=== PATIENT | female | born 1940 ===

== ENCOUNTER 2020-04-20 09:55 | Inpatient (IN) ==
[2020-04-20 10:43] LABS: Basophils % 0.1 % (0.0-0.8); Eosinophils % 0.4 % (0.00-10.9); Hematocrit 37.1 VOL% (35.7-47.0); Hemoglobin 13.4 GM/DL (12.0-16.0); Immature Granulocytes % 0.4 %; Immature Granulocytes Absolute 0.04 #; Lymphocytes # 1.4 10*3/uL (1.4-4.0); Mean Corpuscular HGB Conc 36.1 GM/DL (32-36); Mean Platelet Volume 9.4 FL (9.6-12.0); Monocytes % 5.2 % (1.7-12.7); Neutrophils % 79.9 % (38.7-73.9); Platelet Count 245 T/CUMM (130-400); Red Blood Count 4.17 MC/CUMM (3.8-5.5); Red Cell Distribution Width 11.8 % (9.3-17.3)
[2020-04-20 11:03] LABS: Calcium 9.3 MG/DL (8.5-10.1); Osmolality,Calculated 295.1 MOS/KG (273-304)
[2020-04-20] MEDS ORDERED: SODIUM CHLORIDE 0.9% 500 ML IV STA ×2 (12:26→13:28)
[2020-04-20] MEDS ORDERED: hydrALAZINE 20 MG/1 ML VIAL ONE (13:23)
[2020-04-20] MEDS ORDERED: hydrALAZINE 20 MG/1 ML VIAL IV STA (13:28)
[2020-04-20] MEDS ORDERED: GLUCAGON 1 MG VIAL IM PRN (13:29)
[2020-04-20] MEDS ORDERED: DEXTROSE 50% 25 GM/50 ML VIAL IV PRN (13:29)
[2020-04-20] MEDS ORDERED: ACETAMINOPHEN 325 MG TABLET PO PRN (13:29)
[2020-04-20] MEDS: ONDANSETRON 4 MG/2 ML VIAL IV PRN ×2 (14:08→21:15)
[2020-04-20] MEDS: SODIUM CHLORIDE 0.9% 1,000 ML IV SCH (15:15)
[2020-04-20 15:33] LABS: Risk Ratio 5.16; Thyroid Stimulating Hormone 1.11 uIU/ml (0.358-3.74); VLDL CHOLESTEROL 38.8 MG/DL
[2020-04-20] MEDS: INSULIN LISPRO 100 UNIT/ML SUBCUT SCH ×2 (18:28→21:11)
[2020-04-20] MEDS: METOCLOPRAMIDE 5 MG TABLET PO SCH ×2 (18:30→21:11)
[2020-04-20] MEDS: ENOXAPARIN 30 MG/0.3 ML SYRINGE SUBCUT SCH (21:11)
[2020-04-21] MEDS: SODIUM CHLORIDE 0.9% 1,000 ML IV SCH ×2 (00:24→07:13)
[2020-04-21] MEDS: hydrALAZINE 20 MG/1 ML VIAL IV PRN ×2 (02:37→21:32)
[2020-04-21 05:17] LABS: Basophils % 0.2 % (0.0-0.8); Eosinophils % 0.3 % (0.00-10.9); Hematocrit 35.6 VOL% (35.7-47.0); Hemoglobin 12.5 GM/DL (12.0-16.0); Immature Granulocytes % 0.5 %; Immature Granulocytes Absolute 0.06 #; Lymphocytes # 3.7 10*3/uL (1.4-4.0); Lymphocytes % 27.7 % (21.3-54.2); Mean Corpuscular HGB Conc 35.1 GM/DL (32-36); Mean Corpuscular Volume 91.5 FL (87-102); Mean Platelet Volume 10.2 FL (9.6-12.0); Monocytes % 6.2 % (1.7-12.7); Neutrophils % 65.1 % (38.7-73.9); Platelet Count 291 T/CUMM (130-400); Red Blood Count 3.89 MC/CUMM (3.8-5.5); Red Cell Distribution Width 11.9 % (9.3-17.3); White Blood Count 13.2 T/CUMM (4-12)
[2020-04-21 05:52] LABS: Calcium 8.7 MG/DL (8.5-10.1); Osmolality,Calculated 301.3 MOS/KG (273-304)
[2020-04-21] MEDS: METOCLOPRAMIDE 5 MG TABLET PO SCH ×4 (07:12→21:31)
[2020-04-21] MEDS: ONDANSETRON 4 MG/2 ML VIAL IV PRN ×3 (07:19→16:14)
[2020-04-21] MEDS ORDERED: POTASSIUM CHLORIDE 20 MEQ TABLET PO ONE (07:24)
[2020-04-21] MEDS ORDERED: SODIUM CHLOR 0.45% KCL 20 MEQ 20 MEQ/1,000 ML BAG IV SCH (07:30)
[2020-04-21] MEDS ORDERED: SODIUM CHLORIDE 0.45% IV SCH (09:00)
[2020-04-21] MEDS ORDERED: SODIUM BICARB IV SCH (09:00)
[2020-04-21] MEDS ORDERED: SODIUM BICARB INJ 50 MEQ in SODIUM CHLORIDE 0.45% 1,000 ML IV SCH (09:00)
[2020-04-21] MEDS: METOPROLOL SUCCINATE XL 100 MG TABLET PO SCH (09:07)
[2020-04-21] MEDS: ASPIRIN EC 81 MG TABLET PO SCH (09:07)
[2020-04-21] MEDS: DOXAZOSIN 1 MG TABLET PO SCH (09:07)
[2020-04-21] MEDS: PANTOPRAZOLE 40 MG TABLET PO SCH (09:07)
[2020-04-21] MEDS: SODIUM BICARB INJ 100 MEQ in DEXTROSE 5% 1,000 ML IV SCH ×2 (09:08→18:02)
[2020-04-21] MEDS: INSULIN LISPRO 100 UNIT/ML SUBCUT SCH ×4 (10:04→21:31)
[2020-04-21] MEDS: amLODIPine 10 MG TABLET PO SCH (12:29)
[2020-04-21 13:42] LABS: Apearance,Urine CLOUDY (Clear); Bacteria,Urine Many /HPF (Few); Bilirubin,Urine Negative (Negative); Blood, Urine Negative (Negative); Glucose,Urine (UA) 50 mg/dL (Negative); Ketones,Urine 20 mg/dL (Negative); Mucus,Urine Occasional /LPF (Occasional); Nitrite,Urine Negative (Negative); Protein,Urine >=500 MG/DL; Squamous Epithelial Cell,Urine Occasional /HPF (0-10); Urine Color Yellow (Yellow); Urine Urobilinogen < 2.0 EU/DL (0.2-1.0); WBC,Urine 293 /HPF (0-6)
[2020-04-21] MEDS: ENOXAPARIN 30 MG/0.3 ML SYRINGE SUBCUT SCH (21:36)
[2020-04-22] MEDS: SODIUM BICARB INJ 100 MEQ in DEXTROSE 5% 1,000 ML IV SCH (02:54)
[2020-04-22] MEDS: hydrALAZINE 20 MG/1 ML VIAL IV PRN (04:49)
[2020-04-22 06:05] LABS: Eosinophils % 0.1 % (0.00-10.9); Hemoglobin 11.8 GM/DL (12.0-16.0)
[2020-04-22 06:12] LABS: Basophils % 0.1 % (0.0-0.8); Immature Granulocytes % 0.9 %; Immature Granulocytes Absolute 0.09 #; Lymphocytes # 1.2 10*3/uL (1.4-4.0); Lymphocytes % 11.7 % (21.3-54.2); Mean Corpuscular HGB Conc 35.8 GM/DL (32-36); Mean Corpuscular Volume 88.2 FL (87-102); Neutrophils % 79.2 % (38.7-73.9); Platelet Count 243 T/CUMM (130-400); Red Blood Count 3.74 MC/CUMM (3.8-5.5); Red Cell Distribution Width 11.8 % (9.3-17.3); White Blood Count 10.3 T/CUMM (4-12)
[2020-04-22 06:24] LABS: Calcium 8.7 MG/DL (8.5-10.1); Osmolality,Calculated 298.7 MOS/KG (273-304)
[2020-04-22] MEDS: ONDANSETRON 4 MG/2 ML VIAL IV PRN ×3 (07:21→15:57)
[2020-04-22] MEDS ORDERED: POTASSIUM CHLORIDE 20 MEQ TABLET PO ONE (08:36)
[2020-04-22] MEDS ORDERED: SODIUM CHLOR 0.9% KCL 40 MEQ 40 MEQ/1,000 ML BAG IV SCH (09:00)
[2020-04-22] MEDS: METOCLOPRAMIDE 5 MG TABLET PO SCH ×4 (09:13→21:16)
[2020-04-22] MEDS: amLODIPine 10 MG TABLET PO SCH (09:13)
[2020-04-22] MEDS: DOXAZOSIN 1 MG TABLET PO SCH (09:13)
[2020-04-22] MEDS: METOPROLOL SUCCINATE XL 100 MG TABLET PO SCH (09:13)
[2020-04-22] MEDS: ASPIRIN EC 81 MG TABLET PO SCH (09:14)
[2020-04-22] MEDS: PANTOPRAZOLE 40 MG TABLET PO SCH (09:14)
[2020-04-22] MEDS: INSULIN LISPRO 100 UNIT/ML SUBCUT SCH ×4 (09:17→21:18)
[2020-04-22] MEDS: POTASSIUM CHLORIDE RIDER 10 MEQ in PREMIX 1 EACH IV PRN ×2 (09:20→11:47)
[2020-04-22] MEDS: SODIUM CHLOR 0.9% KCL 40 MEQ 40 MEQ/1,000 ML BAG IV SCH (13:48)
[2020-04-22] MEDS ORDERED: LEVOFLOXACIN 500 MG TABLET PO SCH (14:00)
[2020-04-22] MEDS ORDERED: LEVOFLOXACIN INJ 500 MG in PREMIX 1 EACH IV SCH (14:00)
[2020-04-22] MEDS: ENOXAPARIN 30 MG/0.3 ML SYRINGE SUBCUT SCH (21:16)
[2020-04-23] MEDS: SODIUM CHLOR 0.9% KCL 40 MEQ 40 MEQ/1,000 ML BAG IV SCH ×2 (01:39→10:50)
[2020-04-23 06:05] LABS: Basophils % 0.2 % (0.0-0.8); Hematocrit 32.8 VOL% (35.7-47.0); Hemoglobin 11.6 GM/DL (12.0-16.0); Immature Granulocytes % 1.6 %; Immature Granulocytes Absolute 0.18 #; Lymphocytes # 0.9 10*3/uL (1.4-4.0); Lymphocytes % 8.3 % (21.3-54.2); Mean Corpuscular HGB Conc 35.4 GM/DL (32-36); Mean Corpuscular Volume 90.9 FL (87-102); Mean Platelet Volume 9.5 FL (9.6-12.0); Monocytes % 4.9 % (1.7-12.7); Platelet Count 224 T/CUMM (130-400); Red Blood Count 3.61 MC/CUMM (3.8-5.5); Red Cell Distribution Width 11.9 % (9.3-17.3); White Blood Count 11.2 T/CUMM (4-12)
[2020-04-23 06:27] LABS: Calcium 8.7 MG/DL (8.5-10.1); Osmolality,Calculated 291.7 MOS/KG (273-304)
[2020-04-23] MEDS: METOCLOPRAMIDE 5 MG TABLET PO SCH ×2 (10:01→13:54)
[2020-04-23] MEDS: PANTOPRAZOLE 40 MG TABLET PO SCH (10:01)
[2020-04-23] MEDS: INSULIN LISPRO 100 UNIT/ML SUBCUT SCH ×2 (10:01→13:50)
[2020-04-23] MEDS: DOXAZOSIN 1 MG TABLET PO SCH (10:01)
[2020-04-23] MEDS: METOPROLOL SUCCINATE XL 100 MG TABLET PO SCH (10:02)
[2020-04-23] MEDS: amLODIPine 10 MG TABLET PO SCH (10:02)
[2020-04-23] MEDS: ASPIRIN EC 81 MG TABLET PO SCH (10:02)
[2020-04-23] MEDS: ONDANSETRON 4 MG/2 ML VIAL IV PRN (10:50)
[2020-04-23 12:49] VITALS: BP 129/61
== END 2020-04-23 14:43 | disposition swing bed (61) | DRG 683 ==
LOC: N.ED 09:55 → N.EDINP 13:29 → SUATTDRO 13:29 → N.TELES 14:21
PROVIDERS: ADMIT Emergency Medicine; ATTEND Internal Medicine